=== PATIENT | female | born 1935 | race African-American/Black ===

== ENCOUNTER 2020-01-15 19:34 | Inpatient (IN) | payer MEDICARE, MEDICAID ==
[~2020-01-15] VITALS: Ht 152.4 cm; Wt 61.8 kg
[2020-01-15] MEDS ORDERED: SODIUM CHLORIDE 0.9% 1000ML BAG (SEPSIS BOLUS) IV ONE (20:30)
[2020-01-15 21:33] LABS: CLARITY URINE TURBID (CLEAR); COLOR URINE YELLOW (YELLOW); KETONES URINE TRACE (NEGATIVE); LEUKOCYTE ESTERASE URINE 3+ (NEGATIVE); NITRITE URINE NEGATIVE (NEGATIVE); OCCULT BLOOD URINE 3+ (NEGATIVE); PH URINE 5.5 (4.5-8.0); PROTEIN URINE TRACE (NEGATIVE); SPECIFIC GRAVITY URINE 1.016 (1.005-1.030)
[2020-01-15 21:37] LABS: BASOPHILS % 0.3 % (0.0-2.0); EOSINOPHILS % 0.1 % (0.0-5.0); HEMATOCRIT. 54.9 % (36.0-48.0); HEMOGLOBIN. 17.8 g/dL (12.0-16.0); LYMPHOCYTES % 11.7 % (20.0-50.0); MEAN CORPUSCULAR VOLUME 95.4 fL (81.0-99.0); MEAN PLATELET VOLUME 8.2 fl (7.4-10.4); MONOCYTES % 7.8 % (2.0-8.0); NEUTROPHILS % 80.1 % (40.0-76.0); PLATELET 356 x1000/uL (130-400); RED BLOOD CELL COUNT 5.75 mill/uL (4.2-5.4); RED CELL DISTRIBUTION WIDTH 13.6 % (11.6-14.6)
[2020-01-15 21:41] LABS: CHLORIDE 110 mEq/L (98-107)
[2020-01-15 21:43] LABS: INR 1.1; PROTHROMBIN TIME 11.8 sec (9.6-11.0)
[2020-01-16] MEDS ORDERED: CEFTRIAXONE 1 G PREMIX 50 ML IV SCH
[2020-01-16] MEDS ORDERED: LEVOFLOXACIN 500MG PREMIX 100 ML IV SCH ×2 (00:30→01:00)
[2020-01-16] MEDS ORDERED: ENOXAPARIN 40MG/0.4ML SYR SUBCUT SCH (00:30)
[2020-01-16] MEDS ORDERED: ACETAMINOPHEN 650MG SUPP PR PRN ×2 (00:30)
[2020-01-16] MEDS ORDERED: DEXTROSE 50% WATER 50ML SYRINGE IV PRN (00:30)
[2020-01-16] MEDS ORDERED: DIPHENHYDRAMINE 50MG/ML VIAL IV PRN (00:30)
[2020-01-16] MEDS ORDERED: ONDANSETRON HCL 4MG/2ML INJ IV PRN (00:30)
[2020-01-16] MEDS: SODIUM CHLORIDE 0.9% 1,000 ML IV SCH ×3 (00:56→23:11)
[2020-01-16] MEDS: BLOOD SUGAR DIAGNOSTIC STRIP TEST SCH ×2 (00:56→21:00)
[2020-01-16] MEDS: INSULIN LISPRO 100 UNITS/ML SUBCUT SCH ×4 (01:09→21:52)
[2020-01-16] MEDS ORDERED: INSULIN LISPRO 100 UNITS/ML SUBCUT SCH (08:20)
[2020-01-16] MEDS ORDERED: FAMOTIDINE 20MG/2ML VIAL IV ONE (10:25)
[2020-01-16] MEDS: FAMOTIDINE 20MG/2ML VIAL IV SCH (10:25)
[2020-01-16] MEDS ORDERED: ENOXAPARIN 40MG/0.4ML SYR SUBCUT ONE (10:43)
[2020-01-16] MEDS ORDERED: AZITHROMYCIN 500 MG in DEXT 5% WATER 250 ML IV SCH (14:30)
[2020-01-16 17:30] VITALS: BP 137/76
[2020-01-16] MEDS ORDERED: [UNRECOGNIZED DRUG - REMARK] XX SCH (17:30)
[2020-01-16 18:54] VITALS: BP 137/76
[2020-01-16 20:00] VITALS: BP 156/88
[2020-01-16] MEDS: PIPERACILLIN/TAZOBACTAM 3.375 G in DEXT 5% WATER 100 ML IV SCH (21:50)
[2020-01-17] VITALS: BP 164/104
[2020-01-17] MEDS ORDERED: CEFTRIAXONE 1 G PREMIX 50 ML IV SCH (01:00)
[2020-01-17] MEDS: CLONIDINE 0.1MG TABLET PO PRN (01:37)
[2020-01-17 04:00] VITALS: BP 165/91
[2020-01-17] MEDS: PIPERACILLIN/TAZOBACTAM 3.375 G in DEXT 5% WATER 100 ML IV SCH ×3 (05:15→21:45)
[2020-01-17 06:29] LABS: BASOPHILS % 0.2 % (0.0-2.0); EOSINOPHILS % 0.1 % (0.0-5.0); HEMATOCRIT. 46.7 % (36.0-48.0); HEMOGLOBIN. 15.1 g/dL (12.0-16.0); LYMPHOCYTES % 10.8 % (20.0-50.0); MEAN CORPUSCULAR HEMOGLOBIN 30.9 pg (28.0-32.0); MEAN CORPUSCULAR VOLUME 95.2 fL (81.0-99.0); MEAN PLATELET VOLUME 8.4 fl (7.4-10.4); MONOCYTES % 8.5 % (2.0-8.0); NEUTROPHILS % 80.4 % (40.0-76.0); PLATELET 291 x1000/uL (130-400); RED CELL DISTRIBUTION WIDTH 13.4 % (11.6-14.6)
[2020-01-17] MEDS: BLOOD SUGAR DIAGNOSTIC STRIP TEST SCH ×5 (06:40→21:49)
[2020-01-17] MEDS: SODIUM CHLORIDE 0.9% 1,000 ML IV SCH ×2 (07:44→16:53)
[2020-01-17] MEDS: FAMOTIDINE 20MG/2ML VIAL IV SCH (09:23)
[2020-01-17] MEDS: ENOXAPARIN 30MG/0.3ML SYR SUBCUT SCH (09:24)
[2020-01-17] MEDS: INSULIN LISPRO 100 UNITS/ML SUBCUT SCH ×4 (09:35→22:32)
[2020-01-17] MEDS: INSULIN GLARGINE UD 100 UNITS/ML SYR SUBCUT SCH ×2 (11:17→22:40)
[2020-01-17 12:00] VITALS: BP 161/92
[2020-01-17] MEDS: AZITHROMYCIN 250 MG in DEXT 5% WATER 250 ML IV SCH (15:23)
[2020-01-17 16:00] VITALS: BP 154/77
[2020-01-17 20:00] VITALS: BP 184/84
[2020-01-18] VITALS (7 sets, daily range): BP systolic 124–161; BP diastolic 68–89
[2020-01-18] MEDS: SODIUM CHLORIDE 0.9% 1,000 ML IV SCH ×2 (02:41→12:28)
[2020-01-18] MEDS: PIPERACILLIN/TAZOBACTAM 3.375 G in DEXT 5% WATER 100 ML IV SCH ×3 (05:27→23:04)
[2020-01-18] MEDS: BLOOD SUGAR DIAGNOSTIC STRIP TEST SCH ×4 (06:07→21:00)
[2020-01-18] MEDS: ENOXAPARIN 30MG/0.3ML SYR SUBCUT SCH (08:33)
[2020-01-18] MEDS: FAMOTIDINE 20MG/2ML VIAL IV SCH (08:33)
[2020-01-18] MEDS: INSULIN LISPRO 100 UNITS/ML SUBCUT SCH ×4 (08:45→21:00)
[2020-01-18] MEDS: INSULIN GLARGINE UD 100 UNITS/ML SYR SUBCUT SCH ×2 (12:40→22:00)
[2020-01-18] MEDS: AZITHROMYCIN 250 MG in DEXT 5% WATER 250 ML IV SCH (16:09)
[2020-01-19] VITALS: BP 151/75
[2020-01-19] MEDS: SODIUM CHLORIDE 0.9% 1,000 ML IV SCH ×3 (02:54→19:00)
[2020-01-19 04:00] VITALS: BP 158/69
[2020-01-19] MEDS: INSULIN LISPRO 100 UNITS/ML SUBCUT SCH ×4 (06:49→21:00)
[2020-01-19] MEDS: BLOOD SUGAR DIAGNOSTIC STRIP TEST SCH ×4 (06:49→21:00)
[2020-01-19] MEDS: PIPERACILLIN/TAZOBACTAM 3.375 G in DEXT 5% WATER 100 ML IV SCH ×3 (06:54→23:02)
[2020-01-19 08:00] VITALS: BP 162/78
[2020-01-19] MEDS: ENOXAPARIN 30MG/0.3ML SYR SUBCUT SCH (08:12)
[2020-01-19] MEDS: FAMOTIDINE 20MG/2ML VIAL IV SCH (08:13)
[2020-01-19] MEDS: INSULIN GLARGINE UD 100 UNITS/ML SYR SUBCUT SCH ×2 (10:00→22:10)
[2020-01-19 12:00] VITALS: BP 144/84
[2020-01-19 16:00] VITALS: BP 162/90
[2020-01-19 20:51] VITALS: BP 164/86
[2020-01-19] MEDS: CLONIDINE 0.1MG TABLET PO PRN (21:43)
[2020-01-19] MEDS: AZITHROMYCIN 250 MG in DEXT 5% WATER 250 ML IV SCH (21:54)
[2020-01-20] VITALS (7 sets, daily range): BP systolic 136–185; BP diastolic 61–84
[2020-01-20] MEDS: PIPERACILLIN/TAZOBACTAM 3.375 G in DEXT 5% WATER 100 ML IV SCH ×3 (05:12→20:37)
[2020-01-20] MEDS: SODIUM CHLORIDE 0.9% 1,000 ML IV SCH ×3 (05:44→20:57)
[2020-01-20] MEDS: BLOOD SUGAR DIAGNOSTIC STRIP TEST SCH ×4 (06:09→20:58)
[2020-01-20] MEDS: INSULIN LISPRO 100 UNITS/ML SUBCUT SCH ×4 (06:15→20:58)
[2020-01-20] MEDS: FAMOTIDINE 20MG/2ML VIAL IV SCH (09:31)
[2020-01-20] MEDS: ENOXAPARIN 30MG/0.3ML SYR SUBCUT SCH (09:32)
[2020-01-20] MEDS: INSULIN GLARGINE UD 100 UNITS/ML SYR SUBCUT SCH ×2 (10:00→20:58)
[2020-01-20] MEDS: AZITHROMYCIN 250 MG in DEXT 5% WATER 250 ML IV SCH (14:31)
[2020-01-21 00:14] VITALS: BP 150/79
[2020-01-21 04:00] VITALS: BP 143/88
[2020-01-21] MEDS: PIPERACILLIN/TAZOBACTAM 3.375 G in DEXT 5% WATER 100 ML IV SCH (05:31)
[2020-01-21] MEDS: INSULIN LISPRO 100 UNITS/ML SUBCUT SCH ×4 (05:41→21:00)
[2020-01-21] MEDS: BLOOD SUGAR DIAGNOSTIC STRIP TEST SCH ×4 (05:41→21:18)
[2020-01-21 08:00] VITALS: BP 137/74
[2020-01-21] MEDS: FAMOTIDINE 20MG/2ML VIAL IV SCH (08:53)
[2020-01-21] MEDS: INSULIN GLARGINE UD 100 UNITS/ML SYR SUBCUT SCH ×2 (10:00→21:28)
[2020-01-21] MEDS: ENOXAPARIN 30MG/0.3ML SYR SUBCUT SCH (10:20)
[2020-01-21] MEDS: SODIUM CHLORIDE 0.9% 1,000 ML IV SCH ×2 (11:00→21:27)
[2020-01-21 12:14] VITALS: BP 143/59
[2020-01-21 16:32] VITALS: BP 165/62
[2020-01-21 20:00] VITALS: BP 150/75
[2020-01-22] VITALS: BP 163/64
[2020-01-22 04:00] VITALS: BP 145/62
[2020-01-22] MEDS: BLOOD SUGAR DIAGNOSTIC STRIP TEST SCH ×4 (05:45→21:00)
[2020-01-22] MEDS: INSULIN LISPRO 100 UNITS/ML SUBCUT SCH ×4 (07:10→21:00)
[2020-01-22 08:00] VITALS: BP 87/62
[2020-01-22] MEDS: FAMOTIDINE 20MG/2ML VIAL IV SCH (10:35)
[2020-01-22] MEDS: ENOXAPARIN 30MG/0.3ML SYR SUBCUT SCH (10:35)
[2020-01-22] MEDS: INSULIN GLARGINE UD 100 UNITS/ML SYR SUBCUT SCH ×2 (10:58→22:09)
[2020-01-22 12:00] VITALS: BP 182/75
[2020-01-22 16:00] VITALS: BP 182/74
[2020-01-22] MEDS: SODIUM CHLORIDE 0.9% 1,000 ML IV SCH ×2 (16:38→17:00)
[2020-01-22 20:00] VITALS: BP 155/76
[2020-01-23] VITALS: BP 171/77
[2020-01-23 04:00] VITALS: BP 158/72
[2020-01-23] MEDS: SODIUM CHLORIDE 0.9% 1,000 ML IV SCH ×2 (04:44→18:31)
[2020-01-23] MEDS: BLOOD SUGAR DIAGNOSTIC STRIP TEST SCH ×4 (06:40→20:50)
[2020-01-23] MEDS: ENOXAPARIN 30MG/0.3ML SYR SUBCUT SCH (08:20)
[2020-01-23] MEDS: FAMOTIDINE 20MG/2ML VIAL IV SCH ×2 (08:20→10:19)
[2020-01-23] MEDS: INSULIN LISPRO 100 UNITS/ML SUBCUT SCH ×4 (10:14→20:50)
[2020-01-23] MEDS: INSULIN GLARGINE UD 100 UNITS/ML SYR SUBCUT SCH ×2 (10:15→21:39)
[2020-01-23] MEDS ORDERED: LIDOCAINE HCL 1% 20ML VIAL (Pyxis) INJ ONE (13:33)
[2020-01-23 20:00] VITALS: BP 136/70
[2020-01-24] VITALS: BP 145/76
[2020-01-24 04:00] VITALS: BP 148/78
[2020-01-24] MEDS: BLOOD SUGAR DIAGNOSTIC STRIP TEST SCH ×4 (06:19→20:31)
[2020-01-24] MEDS: INSULIN LISPRO 100 UNITS/ML SUBCUT SCH ×4 (06:20→21:00)
[2020-01-24 08:02] VITALS: BP 143/75
[2020-01-24] MEDS: ENOXAPARIN 30MG/0.3ML SYR SUBCUT SCH (09:52)
[2020-01-24] MEDS: FAMOTIDINE 20MG/2ML VIAL IV SCH (09:52)
[2020-01-24] MEDS: SODIUM CHLORIDE 0.9% 1,000 ML IV SCH (09:53)
[2020-01-24] MEDS: INSULIN GLARGINE UD 100 UNITS/ML SYR SUBCUT SCH ×2 (09:57→21:17)
[2020-01-24 20:00] VITALS: BP 159/82
[2020-01-25] VITALS: BP 159/87
[2020-01-25 04:00] VITALS: BP 155/81
[2020-01-25] MEDS: SODIUM CHLORIDE 0.9% 1,000 ML IV SCH ×2 (04:28→22:46)
[2020-01-25] MEDS: INSULIN LISPRO 100 UNITS/ML SUBCUT SCH ×4 (06:37→21:00)
[2020-01-25] MEDS: BLOOD SUGAR DIAGNOSTIC STRIP TEST SCH ×4 (06:37→21:00)
[2020-01-25 08:20] VITALS: BP 166/80
[2020-01-25] MEDS: ENOXAPARIN 30MG/0.3ML SYR SUBCUT SCH (09:05)
[2020-01-25] MEDS: FAMOTIDINE 20MG/2ML VIAL IV SCH (09:05)
[2020-01-25] MEDS: INSULIN GLARGINE UD 100 UNITS/ML SYR SUBCUT SCH ×2 (09:44→22:11)
[2020-01-25 12:00] VITALS: BP 131/62
[2020-01-25 16:00] VITALS: BP 125/88
[2020-01-25 20:00] VITALS: BP 152/61
[2020-01-26] VITALS: BP 145/63
[2020-01-26 04:00] VITALS: BP 148/66
[2020-01-26] MEDS: BLOOD SUGAR DIAGNOSTIC STRIP TEST SCH ×4 (07:34→20:23)
[2020-01-26] MEDS: INSULIN LISPRO 100 UNITS/ML SUBCUT SCH ×4 (07:35→21:00)
[2020-01-26 08:59] VITALS: BP 155/77
[2020-01-26] MEDS: INSULIN GLARGINE UD 100 UNITS/ML SYR SUBCUT SCH ×2 (10:00→22:08)
[2020-01-26] MEDS: FAMOTIDINE 20MG/2ML VIAL IV SCH (10:47)
[2020-01-26] MEDS: ENOXAPARIN 30MG/0.3ML SYR SUBCUT SCH (10:47)
[2020-01-26 12:21] VITALS: BP 153/75
[2020-01-26 16:56] VITALS: BP 147/76
[2020-01-26 20:00] VITALS: BP 148/84
[2020-01-26] MEDS: SODIUM CHLORIDE 0.9% 1,000 ML IV SCH (20:22)
[2020-01-27] VITALS: BP 147/70
[2020-01-27 04:00] VITALS: BP 156/79
[2020-01-27] MEDS: INSULIN LISPRO 100 UNITS/ML SUBCUT SCH ×4 (06:28→21:43)
[2020-01-27] MEDS: BLOOD SUGAR DIAGNOSTIC STRIP TEST SCH ×4 (06:28→21:45)
[2020-01-27 08:00] VITALS: BP 151/100
[2020-01-27] MEDS: FAMOTIDINE 20MG/2ML VIAL IV SCH (08:34)
[2020-01-27] MEDS: ENOXAPARIN 30MG/0.3ML SYR SUBCUT SCH (08:34)
[2020-01-27] MEDS: INSULIN GLARGINE UD 100 UNITS/ML SYR SUBCUT SCH ×2 (10:00→21:44)
[2020-01-27 12:00] VITALS: BP 90/63
[2020-01-27 16:00] VITALS: BP 170/100
[2020-01-27] MEDS: SODIUM CHLORIDE 0.9% 1,000 ML IV SCH (18:10)
[2020-01-27 20:00] VITALS: BP 161/81
[2020-01-28] VITALS: BP 154/70
[2020-01-28 04:00] VITALS: BP 169/83
[2020-01-28] MEDS: BLOOD SUGAR DIAGNOSTIC STRIP TEST SCH ×4 (07:33→21:02)
[2020-01-28] MEDS: INSULIN LISPRO 100 UNITS/ML SUBCUT SCH ×4 (07:37→21:00)
[2020-01-28 08:00] VITALS: BP 148/76
[2020-01-28] MEDS: ENOXAPARIN 30MG/0.3ML SYR SUBCUT SCH (09:04)
[2020-01-28] MEDS: FAMOTIDINE 20MG/2ML VIAL IV SCH (09:04)
[2020-01-28] MEDS: INSULIN GLARGINE UD 100 UNITS/ML SYR SUBCUT SCH ×2 (09:07→21:02)
[2020-01-28 12:00] VITALS: BP 163/83
[2020-01-28] MEDS: SODIUM CHLORIDE 0.9% 1,000 ML IV SCH (14:31)
[2020-01-28 16:00] VITALS: BP 155/78
[2020-01-28 20:00] VITALS: BP 162/80
[2020-01-29] VITALS: BP 153/84
[2020-01-29 04:00] VITALS: BP 132/78
[2020-01-29 07:18] LABS: BASOPHILS % 0.4 % (0.0-2.0); EOSINOPHILS % 3.2 % (0.0-5.0); HEMOGLOBIN. 12.4 g/dL (12.0-16.0); LYMPHOCYTES % 22.2 % (20.0-50.0); MEAN CORPUSCULAR HEMOGLOBIN 31.5 pg (28.0-32.0); MEAN PLATELET VOLUME 10.2 fl (7.4-10.4); MONOCYTES % 11.6 % (2.0-8.0); NEUTROPHILS % 62.6 % (40.0-76.0); PLATELET 143 x1000/uL (130-400); RED BLOOD CELL COUNT 3.94 mill/uL (4.2-5.4); RED CELL DISTRIBUTION WIDTH 14.2 % (11.6-14.6)
[2020-01-29 08:00] VITALS: BP 164/85
[2020-01-29] MEDS: INSULIN LISPRO 100 UNITS/ML SUBCUT SCH ×4 (08:10→22:26)
[2020-01-29] MEDS: BLOOD SUGAR DIAGNOSTIC STRIP TEST SCH ×4 (08:10→21:00)
[2020-01-29] MEDS: FAMOTIDINE 20MG/2ML VIAL IV SCH (09:35)
[2020-01-29] MEDS: ENOXAPARIN 30MG/0.3ML SYR SUBCUT SCH (09:35)
[2020-01-29] MEDS: SODIUM CHLORIDE 0.9% 1,000 ML IV SCH (09:35)
[2020-01-29 12:00] VITALS: BP 149/80
[2020-01-29] MEDS: INSULIN GLARGINE UD 100 UNITS/ML SYR SUBCUT SCH ×2 (12:15→22:26)
[2020-01-29 16:00] VITALS: BP 164/90
[2020-01-29 20:00] VITALS: BP 134/80
[2020-01-30] VITALS: BP 146/73
[2020-01-30 04:00] VITALS: BP 140/83
[2020-01-30] MEDS: SODIUM CHLORIDE 0.9% 1,000 ML IV SCH (04:49)
[2020-01-30] MEDS: BLOOD SUGAR DIAGNOSTIC STRIP TEST SCH ×4 (07:40→21:56)
[2020-01-30 08:00] VITALS: BP 130/67
[2020-01-30] MEDS: FAMOTIDINE 20MG/2ML VIAL IV SCH (10:23)
[2020-01-30] MEDS: INSULIN GLARGINE UD 100 UNITS/ML SYR SUBCUT SCH ×2 (10:27→22:00)
[2020-01-30] MEDS: INSULIN LISPRO 100 UNITS/ML SUBCUT SCH ×4 (10:28→21:00)
[2020-01-30] MEDS: ENOXAPARIN 30MG/0.3ML SYR SUBCUT SCH (10:31)
[2020-01-30 12:00] VITALS: BP_SYST 133; BP_SYST 140; BP_DIAS 65; BP_DIAS 75
[2020-01-30 16:00] VITALS: BP 121/74
[2020-01-30 20:00] VITALS: BP 148/91
[2020-01-31] VITALS: BP_SYST 145; BP_SYST 164; BP_DIAS 77; BP_DIAS 85
[2020-01-31] MEDS: SODIUM CHLORIDE 0.9% 1,000 ML IV SCH ×2 (02:00→21:23)
[2020-01-31 04:00] VITALS: BP 146/73
[2020-01-31] MEDS: BLOOD SUGAR DIAGNOSTIC STRIP TEST SCH ×4 (06:48→20:19)
[2020-01-31 08:00] VITALS: BP 158/91
[2020-01-31] MEDS: INSULIN LISPRO 100 UNITS/ML SUBCUT SCH ×4 (08:10→21:20)
[2020-01-31] MEDS: INSULIN GLARGINE UD 100 UNITS/ML SYR SUBCUT SCH ×2 (09:43→22:40)
[2020-01-31] MEDS: ENOXAPARIN 30MG/0.3ML SYR SUBCUT SCH (09:44)
[2020-01-31] MEDS: FAMOTIDINE 20MG/2ML VIAL IV SCH (09:44)
[2020-01-31 12:00] VITALS: BP 161/88
[2020-01-31 16:00] VITALS: BP 147/81
[2020-01-31 20:00] VITALS: BP 161/89
[2020-01-31] MEDS: CLONIDINE 0.1MG TABLET PO PRN (21:46)
[2020-02-01] VITALS: BP 150/82
[2020-02-01 04:00] VITALS: BP 149/81
[2020-02-01] MEDS: BLOOD SUGAR DIAGNOSTIC STRIP TEST SCH ×4 (06:45→21:44)
[2020-02-01 08:00] VITALS: BP 157/94
[2020-02-01] MEDS: FAMOTIDINE 20MG/2ML VIAL IV SCH (08:31)
[2020-02-01] MEDS: ENOXAPARIN 30MG/0.3ML SYR SUBCUT SCH (08:32)
[2020-02-01] MEDS: INSULIN LISPRO 100 UNITS/ML SUBCUT SCH ×4 (08:43→21:44)
[2020-02-01] MEDS: INSULIN GLARGINE UD 100 UNITS/ML SYR SUBCUT SCH ×2 (09:19→21:44)
[2020-02-01 12:03] VITALS: BP 152/85
[2020-02-01 16:03] VITALS: BP 133/84
[2020-02-01] MEDS: SODIUM CHLORIDE 0.9% 1,000 ML IV SCH (17:41)
[2020-02-01 20:00] VITALS: BP 155/65
[2020-02-02] VITALS (7 sets, daily range): BP systolic 70–171; BP diastolic 33–106
[2020-02-02] MEDS: CLONIDINE 0.1MG TABLET PO PRN (04:01)
[2020-02-02] MEDS: BLOOD SUGAR DIAGNOSTIC STRIP TEST SCH ×4 (07:23→21:39)
[2020-02-02] MEDS: ENOXAPARIN 30MG/0.3ML SYR SUBCUT SCH (08:13)
[2020-02-02] MEDS: FAMOTIDINE 20MG/2ML VIAL IV SCH (08:13)
[2020-02-02] MEDS: INSULIN LISPRO 100 UNITS/ML SUBCUT SCH ×5 (08:28→21:43)
[2020-02-02] MEDS: INSULIN GLARGINE UD 100 UNITS/ML SYR SUBCUT SCH ×2 (10:06→22:02)
[2020-02-02] MEDS: SODIUM CHLORIDE 0.9% 1,000 ML IV SCH (12:56)
[2020-02-02] MEDS: METOCLOPRAMIDE HCL 10MG/2ML VIAL IV SCH (17:33)
[2020-02-03] VITALS: BP 91/47
[2020-02-03] MEDS: METOCLOPRAMIDE HCL 10MG/2ML VIAL IV SCH ×6 (01:22→23:01)
[2020-02-03 04:00] VITALS: BP 96/44
[2020-02-03] MEDS: BLOOD SUGAR DIAGNOSTIC STRIP TEST SCH ×4 (06:54→20:55)
[2020-02-03 08:00] VITALS: BP 90/42
[2020-02-03] MEDS: INSULIN LISPRO 100 UNITS/ML SUBCUT SCH ×4 (08:10→20:58)
[2020-02-03] MEDS: ENOXAPARIN 30MG/0.3ML SYR SUBCUT SCH (08:48)
[2020-02-03] MEDS: FAMOTIDINE 20MG/2ML VIAL IV SCH (08:48)
[2020-02-03] MEDS: INSULIN GLARGINE UD 100 UNITS/ML SYR SUBCUT SCH ×2 (09:16→21:23)
[2020-02-03] MEDS: SODIUM CHLORIDE 0.9% 1,000 ML IV SCH (09:17)
[2020-02-03 12:00] VITALS: BP 99/47
[2020-02-03] MEDS ORDERED: CEFEPIME 1,000 MG in DEXTROSE 5% WATER 50 ML IV SCH (14:30)
[2020-02-03] MEDS ORDERED: VANCOMYCIN 1250MG in DEXTROSE 5% WATER 250ML IV SCH (15:30)
[2020-02-03 16:00] VITALS: BP 96/55
[2020-02-03] MEDS: CEFEPIME 1,000 MG in DEXTROSE 5% WATER 50 ML IV SCH (17:20)
[2020-02-03 20:00] VITALS: BP 94/48
[2020-02-03 20:10] LABS: CLARITY URINE CLEAR (CLEAR); COLOR URINE YELLOW (YELLOW); KETONES URINE NEGATIVE (NEGATIVE); LEUKOCYTE ESTERASE URINE TRACE (NEGATIVE); NITRITE URINE NEGATIVE (NEGATIVE); OCCULT BLOOD URINE NEGATIVE (NEGATIVE); PH URINE 6.5 (4.5-8.0); PROTEIN URINE NEGATIVE (NEGATIVE); SPECIFIC GRAVITY URINE 1.011 (1.005-1.030); UROBILINOGEN URINE 0.2 E.U./dL (0.2-1.0)
[2020-02-03] MEDS: METRONIDAZOLE 500MG TABLET PO SCH (20:57)
[2020-02-04] VITALS (7 sets, daily range): BP systolic 93–114; BP diastolic 35–58
[2020-02-04] MEDS: METOCLOPRAMIDE HCL 10MG/2ML VIAL IV SCH ×3 (05:06→18:00)
[2020-02-04 06:09] LABS: BASOPHILS % 0.1 % (0.0-2.0); EOSINOPHILS % 2.4 % (0.0-5.0); HEMATOCRIT. 34.9 % (36.0-48.0); HEMOGLOBIN. 11.2 g/dL (12.0-16.0); LYMPHOCYTES % 8.1 % (20.0-50.0); MEAN CORPUSCULAR HEMOGLOBIN 30.9 pg (28.0-32.0); MEAN CORPUSCULAR VOLUME 95.9 fL (81.0-99.0); MEAN PLATELET VOLUME 11.4 fl (7.4-10.4); MONOCYTES % 2.3 % (2.0-8.0); NEUTROPHILS % 87.1 % (40.0-76.0); PLATELET 95 x1000/uL (130-400); RED BLOOD CELL COUNT 3.64 mill/uL (4.2-5.4); RED CELL DISTRIBUTION WIDTH 14.7 % (11.6-14.6)
[2020-02-04] MEDS: BLOOD SUGAR DIAGNOSTIC STRIP TEST SCH ×4 (08:05→21:00)
[2020-02-04] MEDS: INSULIN LISPRO 100 UNITS/ML SUBCUT SCH ×4 (08:05→23:27)
[2020-02-04 08:51] LABS: CHLORIDE 126 mEq/L (98-107)
[2020-02-04] MEDS: ENOXAPARIN 30MG/0.3ML SYR SUBCUT SCH (09:00)
[2020-02-04] MEDS: FAMOTIDINE 20MG/2ML VIAL IV SCH (09:33)
[2020-02-04] MEDS: SODIUM CHLORIDE 0.9% 1,000 ML IV SCH (09:33)
[2020-02-04] MEDS: METRONIDAZOLE 500MG TABLET PO SCH ×2 (09:33→23:26)
[2020-02-04] MEDS: INSULIN GLARGINE UD 100 UNITS/ML SYR SUBCUT SCH ×2 (10:00→23:28)
[2020-02-04] MEDS ORDERED: DEXTROSE 5% WATER 1,000 ML IV SCH (10:15)
[2020-02-04] MEDS: LEVETIRACETAM 250 MG in SODIUM CHLORIDE 0.9% 100 ML IV SCH ×2 (12:14→23:26)
[2020-02-04] MEDS: VANCOMYCIN 750 MG PREMIX 150 ML IV SCH (13:41)
[2020-02-04] MEDS ORDERED: VANCOMYCIN 750 MG PREMIX 150 ML IV SCH (15:00)
[2020-02-04] MEDS: CEFEPIME 1,000 MG in DEXTROSE 5% WATER 50 ML IV SCH (16:05)
[2020-02-04] MEDS: DEXTROSE 5% WATER 1,000 ML IV SCH (23:32)
[2020-02-05] VITALS: BP 116/70
[2020-02-05 04:00] VITALS: BP 120/53
[2020-02-05] MEDS: VANCOMYCIN 750 MG PREMIX 150 ML IV SCH (06:20)
[2020-02-05] MEDS: METOCLOPRAMIDE HCL 10MG/2ML VIAL IV SCH ×3 (06:20→18:06)
[2020-02-05] MEDS: BLOOD SUGAR DIAGNOSTIC STRIP TEST SCH ×3 (06:20→18:14)
[2020-02-05 08:00] VITALS: BP 102/57
[2020-02-05] MEDS: DEXTROSE 5% WATER 1,000 ML IV SCH (08:49)
[2020-02-05] MEDS: INSULIN LISPRO 100 UNITS/ML SUBCUT SCH ×3 (08:50→18:13)
[2020-02-05] MEDS: LEVETIRACETAM 250 MG in SODIUM CHLORIDE 0.9% 100 ML IV SCH (08:55)
[2020-02-05] MEDS: FAMOTIDINE 20MG/2ML VIAL IV SCH (08:56)
[2020-02-05] MEDS: METRONIDAZOLE 500MG TABLET PO SCH (08:57)
[2020-02-05] MEDS: INSULIN GLARGINE UD 100 UNITS/ML SYR SUBCUT SCH (10:21)
[2020-02-05 12:00] VITALS: BP 103/57
[2020-02-05 13:37] LABS: HEMATOCRIT. 39.4 % (36.0-48.0); HEMOGLOBIN. 12.7 g/dL (12.0-16.0); MEAN CORPUSCULAR HEMOGLOBIN 31.5 pg (28.0-32.0); MEAN PLATELET VOLUME 11.1 fl (7.4-10.4); PLATELET 82 x1000/uL (130-400); RED BLOOD CELL COUNT 4.02 mill/uL (4.2-5.4); RED CELL DISTRIBUTION WIDTH 15.1 % (11.6-14.6)
[2020-02-05 13:49] LABS: CHLORIDE 125 mEq/L (98-107)
[2020-02-05 14:25] LABS: ATYPICAL LYMPHOCYTES 1
[2020-02-05 14:26] LABS: PLATELET ESTIMATE DECREASED
[2020-02-05 16:00] VITALS: BP 90/44
[2020-02-05] MEDS: CEFEPIME 1,000 MG in DEXTROSE 5% WATER 50 ML IV SCH (18:07)
== END 2020-02-05 22:30 | disposition expired | DRG 871 ==
LOC: ER 19:34 → EDBEDREQ 01-16 00:09 → EDBEDREQDT 01-16 00:09 → EDBEDREQSVC 01-16 00:09 → EDBEDREQTM 01-16 00:09 → EDBEDREQ 01-16 00:35 → ENRESERV 01-16 14:52 → 7EST 01-16 17:22 → 7WST 01-26 04:22
PROVIDERS: ADMIT Internal Medicine; ATTEND Internal Medicine
PROC: B54MZZA Ultrasonography of Right Upper Extremity Veins, Guidance (ICD-10-PCS; principal; 2020-01-23)
PROC: 05HY33Z Insertion of Infusion Device into Upper Vein, Percutaneous Approach (ICD-10-PCS; 2020-01-23)
DX: A41.89 Other specified sepsis (principal); U07.1 COVID-19; E43 Unspecified severe protein-calorie malnutrition; G93.41 Metabolic encephalopathy; J12.89 Other viral pneumonia; I63.9 Cerebral infarction, unspecified; J96.01 Acute respiratory failure with hypoxia; N17.9 Acute kidney failure, unspecified; N39.0 Urinary tract infection, site not specified; E87.0 Hyperosmolality and hypernatremia; G40.89 Other seizures; E86.0 Dehydration; E11.65 Type 2 diabetes mellitus with hyperglycemia; Z66 Do not resuscitate; E78.5 Hyperlipidemia, unspecified; I10 Essential (primary) hypertension; S70.22 Blister (nonthermal) of hip; B96.4 Proteus (mirabilis) (morganii) as the cause of diseases classified elsewhere; X58.XXXA Exposure to other specified factors, initial encounter; D69.6 Thrombocytopenia, unspecified; E78.00 Pure hypercholesterolemia, unspecified; E86.1 Hypovolemia; R62.7 Adult failure to thrive; Z83.3 Family history of diabetes mellitus; Z68.26 Body mass index [BMI] 26.0-26.9, adult; Z79.2 Long term (current) use of antibiotics; Z79.899 Other long term (current) drug therapy; Y93.89 Activity, other specified; Y92.89 Other specified places as the place of occurrence of the external cause; Y99.8 Other external cause status
CPT/HCPCS: 36415; 71045; 76937; 80048; 80053; 80076; 81003; 82728; 82962; 83036; 83605; 83615; 83880; 84132; 84145; 84484; 85025; 86140; 87635; 93005; 99291; C1725; J0456; J0692; J0696; J1650; J1815; J1953; J1956; J2543; J2765; J3370; J3490; J7030; J7050; J7060; J7070; U0003-CS